=== PATIENT | female | born 1965 | race Two or more races ===

== ENCOUNTER 2017-02-03 16:18 | Emergency (ER) | payer MEDICAID ==
[~2017-02-03] VITALS: Ht 144.8 cm; Wt 59.4 kg
[~2017-02-03 16:18] MED LIST: METF-370
[2017-02-03 17:12] VITALS: BP 130/71
== END 2017-02-03 17:52 | disposition home or self-care (01) ==
LOC: ER 16:24
DX: H66.91 Otitis media, unspecified, right ear (principal)

== ENCOUNTER 2017-10-31 11:03 | Emergency (ER) | payer MEDICAID ==
[2017-10-31] MEDS ORDERED: InsuLIN REG 1unit/0.01ml Soln (100units/ml) IV ONE (11:15)
[2017-10-31 11:36] LABS: Basophils # (auto) 0.1 uL; Basophils % (auto) 1.2 % (0.0-2.0); Eosinophils # (auto) 0.1 uL; Eosinophils % (auto) 0.9 % (0.0-7.0); Hematocrit 41.5 % (36.0-46.0); Hemoglobin 13.9 g/dL (12.2-16.2); Lymphocytes % (auto) 30.4 % (10.0-50.0); Mean Corpuscular Hemoglobin 29.1 pg (28.0-32.0); Mean Corpuscular Hgb Conc. 33.4 g/dL (32.0-36.0); Mean Corpuscular Volume 87.1 fL (80.0-100.0); Monocytes # (auto) 0.6 uL; Monocytes % (auto) 6.2 % (0.0-12.0); Neutrophils % (auto) 61.3 % (37.0-80.0); Platelet Count (auto) 328 10^3/uL (140-450); Red Blood Cells 4.77 10^6/uL (4.0-5.20); Red Cell Distribution Width 13.9 % (11.8-14.3); White Blood Cell 9.8 10^3/uL (4.4-10.8)
[2017-10-31] MEDS ORDERED: SODIUM CHLORIDE 0.9% 1,000 ML IV ONE (11:36)
[2017-10-31 11:38] LABS: Urine Bacteria NONE SEEN /hpf (None Seen); Urine Blood Negative /uL (Negative); Urine Specific Gravity 1.003 (1.001-1.035); Urine WBC <1 /hpf (0 - 5)
[2017-10-31 12:00] LABS: Alanine Aminotransferase 15 U/L (13-56); Albumin 3.7 g/dL (3.4-5.0); Alkaline Phosphatase 85 U/L (45-117); Anion Gap 9 (5-15); Aspartate Aminotransferase 7 U/L (15-37); BUN/Creatinine Ratio 14.1; Bilirubin, Total 0.4 mg/dL (0.2-1.0); Blood Urea Nitrogen 10 mg/dL (7-18); Calcium 8.7 mg/dL (8.5-10.1); Carbon Dioxide 25 mmol/L (21-32); Chloride 102 mmol/L (98-107); GFR African American 111 mL/min; GFR Non-African American 92 mL/min; Glucose 334 mg/dL (74-106); Potassium 4.2 mmol/L (3.5-5.1); Sodium 136 mmol/L (136-145); Total Protein 7.4 g/dL (6.4-8.2)
[2017-10-31 12:29] VITALS: BP 119/74
== END 2017-10-31 15:44 | disposition home or self-care (01) ==
LOC: ER 11:06
DX: E11.65 Type 2 diabetes mellitus with hyperglycemia (principal); E78.5 Hyperlipidemia, unspecified; F17.210 Nicotine dependence, cigarettes, uncomplicated; R42 Dizziness and giddiness
CPT/HCPCS: 36415; 80053; 81001; 82962; 84484; 85025; 93005; 96361; 96374; 99285; J1815; J7030

== ENCOUNTER 2018-03-05 06:54 | Emergency (ER) | payer MEDICAID ==
[~2018-03-05] VITALS: Ht 157.5 cm; Wt 53.5 kg
[2018-03-05 07:39] LABS: Basophils # (auto) 0.1 uL; Basophils % (auto) 1.2 % (0.0-2.0); Eosinophils # (auto) 0.2 uL; Eosinophils % (auto) 2.4 % (0.0-7.0); Hematocrit 41.3 % (36.0-46.0); Lymphocytes # (auto) 2.5 uL; Lymphocytes % (auto) 32.5 % (10.0-50.0); Mean Corpuscular Hemoglobin 29.8 pg (28.0-32.0); Mean Corpuscular Hgb Conc. 33.8 g/dL (32.0-36.0); Mean Corpuscular Volume 88.2 fL (80.0-100.0); Monocytes # (auto) 0.5 uL; Monocytes % (auto) 6.1 % (0.0-12.0); Neutrophils # (auto) 4.5 uL; Neutrophils % (auto) 57.8 % (37.0-80.0); Platelet Count (auto) 262 10^3/uL (140-450); Red Blood Cells 4.68 10^6/uL (4.0-5.20); White Blood Cell 7.8 10^3/uL (4.4-10.8)
[2018-03-05 07:41] LABS: Urine Bacteria NONE SEEN /hpf (None Seen); Urine Blood Negative /uL (Negative); Urine Mucus FEW (None Seen); Urine Specific Gravity 1.009 (1.001-1.035); Urine WBC 1 /hpf (0 - 5)
[2018-03-05 07:54] LABS: Alanine Aminotransferase 15 U/L (13-56); Albumin 3.3 g/dL (3.4-5.0); Anion Gap 8 (5-15); Aspartate Aminotransferase 6 U/L (15-37); BUN/Creatinine Ratio 16.4; Blood Urea Nitrogen 11 mg/dL (7-18); Calcium 7.8 mg/dL (8.5-10.1); Carbon Dioxide 24 mmol/L (21-32); Chloride 106 mmol/L (98-107); GFR African American 119 mL/min; GFR Non-African American 98 mL/min; Glucose 269 mg/dL (74-106); Magnesium 1.9 mg/dL (1.6-2.6); Potassium 4.3 mmol/L (3.5-5.1); Sodium 138 mmol/L (136-145)
[2018-03-05 07:59] LABS: Alkaline Phosphatase 78 U/L (45-117); Bilirubin, Total 0.3 mg/dL (0.2-1.0)
[2018-03-05] MEDS ORDERED: metFORMIN HYDROCHLORIDE 500 MG TAB PO ONE (08:15)
[2018-03-05 08:46] VITALS: BP 126/74
== END 2018-03-05 09:03 | disposition home or self-care (01) ==
LOC: ER 06:54
DX: E11.65 Type 2 diabetes mellitus with hyperglycemia (principal); E78.5 Hyperlipidemia, unspecified; F17.210 Nicotine dependence, cigarettes, uncomplicated
CPT/HCPCS: 36415; 71045; 80053; 81001; 82962; 83735; 84484; 85025; 93005

== ENCOUNTER 2024-08-24 18:38 | Emergency (ER) | payer SELFPAY ==
[~2024-08-24] VITALS: Ht 149.9 cm; Wt 49.4 kg
--- NOTE | 2024-08-24 19:00 | ED.PDOC ---
Musculoskeletal HPI Comments 59 year old female came to ER due to lower extremity numbness. Patient has history of diabetes and she admits that she has not been able to take her Metformin for the past week. Patient coming in today that she has been experiencing numbness to both her legs for the past 3 months. She also noted that her blood sugar levels has been elevated recently Chief Complaint: Lower Extremity Time Seen by MD: 18:59 Primary Care Provider: MARK ANTHONY Reviewed Notes: Nurses Notes Allergies: Coded Allergies: NO KNOWN ALLERGIES (Unverified , 01/02/12) Home Meds Reported Medications Metformin Hydrochloride (Metformin Hcl) 500 Mg Tab 01/02/12 Information Source: Patient Mode of Arrival: Ambulatory Location: Bilateral Extremity Location: Leg Timing: Months Prehospital treatment: None Severity: Mild Able to Move Extremity: Yes Bear Weight: Limited Pain: Moderate Hand Dominance: Right Mechanism: Spontaneous Circumstances: Spontaneous Onset of Symptoms: Spontaneous Past Medical History PAST MEDICAL HISTORY: DM, High Lipids Surgical History: Denies all surgeries 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 Family History Family History: No family hx of DM Social History Smoker: Non-Smoker Alcohol: Denies ETOH Use Drugs: Denies Drug Use Lives In: Home Constitutional: denies: chills, diaphoresis, fatigue, fever, malaise, sweats, weakness, others EENTM: denies: blurred vision, double vision, ear bleeding, ear discharge, ear drainage, ear pain, ear ringing, eye pain, eye redness, hearing loss, mouth pain, mouth swelling, nasal discharge, nose bleeding, nose congestion, nose pain, photophobia, tearing, throat pain, throat swelling, voice changes, others Respiratory: denies: cough, hemoptysis, orthopnea, SOB at rest, shortness of breath, SOB with excertion, stridor, wheezing, others Cardiovascular: denies: chest pain, dizzy spells, diaphoresis, Dyspnea on exertion, edema, irregular heart beat, left arm pain, lightheadedness, palpitations, PND, syncope, others Gastrointestinal: denies: abdomen distended, abdominal pain, blood streaked bowels, constipated, diarrhea, dysphagia, difficulty swallowing, hematemesis, melena, nausea, poor appetite, poor fluid intake, rectal bleeding, rectal pain, vomiting, others Genitourinary: denies: abnormal vagina bleeding, burning, dyspareunia, dysuria, flank pain, frequency, hematuria, incontinence, pain, , vagina discharge, urgency, others Neurological: reports: numbness (bilateral lower extremities); denies: dizziness, fainting, headache, left sided numbness, left sided weakness, paresthesia, pre-existing deficit, right sided numbness, right sided weakness, seizure, speech problems, tingling, tremors, weakness, others Musculoskeletal: denies: back pain, gout, joint pain, joint swelling, muscle pain, muscle stiffness, neck pain, others Integumetry: denies: bruises, change in color, change in hair/nails, dryness, laceration, lesions, lumps, rash, wounds, others Allergic/Immunocompromised: denies: Difficulty Healing, Frequent Infections, Hives, Itching, others Hematologic/Lymphatic: denies: anemia, blood clots, easy bleeding, easy bruising, swollen glands, others Endocrine: denies: excessive hunger, excessive sweating, excessive thirst, excessive urination, flushing, intolerance to cold, intolerance to heat, unexplained weight gain, unexplained weight loss, others Psychiatric: denies: anxiety, bipolar disorder, depression, hopeless, panic disorder, schizophrenia, sleepless, suicidal, others Physical Exam General Appearance: No Apparent Distress, Normal HEENT: Normal ENT Inspection, Pharynx Normal, TMs Normal Neck: Full Range of Motion, Non-Tender, Normal, Normal Inspection Respiratory: Chest Non-Tender, Lungs Clear, No Accessory Muscle Use, No Respiratory Distress, Normal Breath Sounds Cardiovascular: No Edema, No JVD, No Murmur, No Gallop, Normal Peripheral Pulses, Regular Rate/Rhythm Breast Exam: Deferred Gastrointestinal: No Organomegaly, Non Tender, No Pulsatile Mass, Normal Bowel Sounds, Soft Genitalia: Deferred Pelvic: Deferred Rectal: Deferred Extremities: No calf tenderness, Normal capillary refill, Normal inspection, Normal range of motion, Non-tender, No pedal edema Musculoskeletal : Apperance: Normal Neurologic: Alert, 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 Was a procedure done?: No Differential Diagnosis EXT Differential Diagnosis: Deep Vein Thrombosis, Neurovascular injury, Other (Neuropathy) X-Ray, Labs, Meds, VS Vital Signs Date Time Temp Pulse Resp B/P (MAP) Pulse Ox O2 Delivery O2 Flow Rate FiO2 08/24/24 22:12 81 16 96 Room Air 08/24/24 22:11 97.9 81 16 147/75 (99) 96 97.9 08/24/24 21:15 97.2 87 18 127/70 (89) 98 97.2 08/24/24 18:50 97.4 94 16 166/72 (103) 97 97.4 Lab Test 08/24/24 22:16 08/24/24 22:15 08/24/24 20:49 Range/Units POC Glucose 522 *H 499 *H 70-106 mg/dl Sodium Level 135 L 136-145 mmol/L Potassium Level 4.3 3.5-5.1 mmol/L Chloride Level 101 98-107 mmol/L Carbon Dioxide Level 28 20-31 mmol/L Anion Gap 6 5-15 Blood Urea Nitrogen 12 9-23 mg/dL Creatinine 1.00 0.550-1.02 mg/dL Glomerular Filtration Rate Calc 65 >90 mL/min BUN/Creatinine Ratio 12.0 10.0-20.0 Serum Glucose 542 *H 74-106 mg/dL Calcium Level 9.2 8.7-10.4 mg/dL Current Medications Medications (Trade) Dose Ordered Sig/[place] Route Start Time Stop Time Status Last Admin Insulin Human Regular (InsuLIN R) 8 units ONCE ONCE SC 08/24/24 21:45 08/24/24 21:46 DC 08/24/24 22:23 Time of 1ST Reevaluation: 18:56 Reevaluation 1ST: Unchanged Patient Education/Counseling: Diagnosis, Treatment, Prognosis, Need For Follow Up Family Education/Counseling: No Family Present Additional Information -Reviewed patient's previous visit(s): October and February 2018 for generalized weakness - The following tests were ordered, and results were reviewed by me: - Additional information was gathered from interviewing the following independent Historian: - I reviewed and agreed with the following test results read by other provider: - I discussed treatments and results with medical personnel and: patient Comprehensive systems review obtained and negative except for what is stated in the HPI. pt has been noncompliant and BS has been running high. for a week, she's completely out of her metformin. she is not in DKA. she has symptoms of peripheral neuropathy. i will refill her metformin and start her on gabapentin Departure 1 Departure Time of Disposition: 23:30 Impression: Primary Impression: Poorly controlled diabetes mellitus Additional Impressions: Medication refill Peripheral neuropathy Qualified Codes: G62.9 - Polyneuropathy, unspecified Disposition: HOME / SELF CARE / HOMELESS Condition: Good e-Prescriptions Gabapentin (Gabapentin) 300 Mg Cap 1 CAP PO TID, #90 CAP 5 Refills Prov: NICOLE BRIDGES MD 08/24/24 Metformin Hydrochloride (Metformin Hcl) 500 Mg Tab 1000 MG PO BID for 30 Days, #120 TAB Prov: NICOLE BRIDGES MD 08/24/24 Discharged With: Self Critical Care Note Critical Care Time?: No Stability Stability form required: No Heart Score Heart Score: Heart Score Response (Comments) Value History N/A 0 EKG N/A 0 Age N/A 0 Risk Factors N/A 0 Troponin N/A 0 Total 0 I personally scribed for NICOLE BRIDGES MD ([email or web address]) on 08/24/24 at 19:00. Electronically submitted by Everett Sutherlnad ([email or web address]). I personally scribed for NICOLE BRIDGES MD ([email or web address]) on 08/24/24 at 19:01. Electronically submitted by Everett Sutherland ([email or web address]). I personally scribed for NICOLE BRIDGES MD ([email or web address]) on 08/24/24 at 21:08. Electronically submitted by Everett Sutherland ([email or web address]). NICOLE BRIDGES MD Aug 24, 2024 19:00
[2024-08-24 21:22] LABS: Chloride 101 mmol/L (98-107); Potassium 4.3 mmol/L (3.5-5.1)
[2024-08-24 21:23] LABS: Anion Gap 6 (5-15); Carbon Dioxide 28 mmol/L (20-31)
[2024-08-24 21:24] LABS: Calcium 9.2 mg/dL (8.7-10.4)
[2024-08-24 21:28] LABS: Blood Urea Nitrogen 12 mg/dL (9-23)
[2024-08-24 21:33] LABS: Sodium 135 mmol/L (136-145)
[2024-08-24 21:34] LABS: Glucose 542 mg/dL (74-106)
[2024-08-24] MEDS: InsuLIN REG 1unit/0.01ml Soln (100units/ml) SC ONE (22:23)
[2024-08-24] MEDS ORDERED: GABA-1250 PO (23:32)
[2024-08-24] MEDS ORDERED: METF-370 PO (23:32)
[2024-08-24 23:44] VITALS: PULSE 15; RESP 15; O2SAT 97
[2024-08-24 23:52] VITALS: BP 148/75; PULSE 77; RESP 16; TEMP 97.8; O2SAT 97
== END 2024-08-24 23:55 | disposition home or self-care (01) ==
LOC: ER 18:40
DX: E11.65 Type 2 diabetes mellitus with hyperglycemia (principal); E11.42 Type 2 diabetes mellitus with diabetic polyneuropathy; E78.5 Hyperlipidemia, unspecified; Z76.0 Encounter for issue of repeat prescription
CPT/HCPCS: 36415; 80048; 82947; 96372; 99283; J1815; 82962